=== PATIENT | male | born 1990 | race Caucasian/White ===

== ENCOUNTER 2021-02-19 14:51 | Emergency (ER) | payer OTHER ==
[~2021-02-19 14:51] MED LIST: BUTALB-ACETAMI1 EACH PO; NORVASC 5 MG TAB5 MG PO; PRINIVIL10 MG PO; ZOLOFT25 MG PO
[2021-02-19] MEDS ORDERED: NORFLEX 100 MG100 MG PO (16:26)
[2021-02-19] MEDS ORDERED: NAPROSYN500 MG PO (16:26)
[2021-02-19] MEDS ORDERED: MEDROL DOSEPAK 24 MG PO (16:26)
== END 2021-02-19 16:43 | disposition home or self-care (01) ==
LOC: ER1 14:51
DX: M54.5 Low back pain (principal); I10 Essential (primary) hypertension
CPT/HCPCS: 72100; 81001; 96374; 99283; J1885